=== PATIENT | male | born 1975 | race Caucasian/White ===

== ENCOUNTER 2017-09-14 10:03 | Emergency (ER) | payer SELFPAY, OTHER ==
[2017-09-14] MEDS: HYDROCODONE/APAP (5/325) TAB PO (10:52)
[2017-09-14] MEDS: DIPHTH/TET/ACEL PERTUSS (ADULT) 0.5 ML VIAL IM* (10:52)
[2017-09-14] MEDS: LIDOCAINE 1% (MDV) 10 ML INJ INJ (10:59)
== END 2017-09-14 12:52 | disposition home or self-care (01) ==
LOC: FTE 10:03
DX: S61.216A Laceration without foreign body of right little finger without damage to nail, initial encounter (principal); S61.214A Laceration without foreign body of right ring finger without damage to nail, initial encounter; W26.0XXA Contact with knife, initial encounter; Y92.9 Unspecified place or not applicable; Z23 Encounter for immunization
CPT/HCPCS: 12001; 90471; 90715; 99283-25

== ENCOUNTER 2017-09-16 10:03 | Emergency (ER) | payer MEDICAID, OTHER | END 2017-09-16 10:57 | disposition home or self-care (01) | LOC: FTE 10:03 → E/R 10:57 | DX: Z48.01 Encounter for change or removal of surgical wound dressing (principal) | CPT/HCPCS: 99281; Z7502 ==